=== PATIENT | female | born 1975 | race Caucasian/White ===

== ENCOUNTER → 2022-06-03 08:23 | Outpatient (CLI) | payer BC, SELFPAY ==
--- NOTE | 2022-06-03 08:44 | XR_ITS ---
FINAL REPORT CLINICAL HISTORY: foot pain FINDINGS: Left foot Three views were obtained. There is no acute fracture or dislocation. There are mild degenerative changes of the 1st metatarsophalangeal joint. Small plantar calcaneal spur is identified. No soft tissue abnormality is identified. IMPRESSION: Degenerative changes as above. Reviewed, Interpreted and Dictated by Alex Baeza III, MD Transcribed by Maryam Roach Authenticated and [facility]
--- NOTE | 2022-06-03 08:44 | XR_ITS ---
FINAL REPORT CLINICAL HISTORY: foot pain FINDINGS: Right foot Three views were obtained. There is no acute fracture or dislocation. There are mild degenerative changes of the 1st metatarsophalangeal joint. No soft tissue abnormality is identified. IMPRESSION: Mild degenerative changes as above. Reviewed, Interpreted and Dictated by Alex Baeza III, MD Transcribed by Maryam Roach Authenticated and [facility]
== END ==
PROVIDERS: PCP Emergency Medicine; Visit Provider Podiatrist
DX: M79.672 Pain in left foot (principal); M79.671 Pain in right foot
CPT/HCPCS: 73630

== ENCOUNTER 2022-06-03 10:24 | Outpatient (RCR) | payer BC, SELFPAY | END 2022-06-03 11:30 | disposition home or self-care (01) | LOC: PT 10:24 | PROVIDERS: Visit Provider Podiatrist | DX: M79.672 Pain in left foot (principal) | CPT/HCPCS: 97760 ==

== ENCOUNTER → 2022-07-02 07:44 | Outpatient (CLI) | payer BC, SELFPAY ==
--- NOTE | 2022-07-02 07:44 | MR_ITS ---
FINAL REPORT CLINICAL HISTORY: plantar foot pain, no injury COMPARISON: None FINDINGS: Multiplanar MR imaging of the left foot was performed without contrast. The bony structures are intact without evidence of fracture, bone bruise or marrow edema. The flexor and extensor tendons are intact. No ligamentous injury is identified. The musculature is intact. The plantar aponeurosis is intact. No soft tissue mass or cyst is identified. IMPRESSION: No acute bony abnormality identified. Reviewed, Interpreted and Dictated by Alex Baeza III, MD Transcribed by Raina Alba Authenticated and [facility]
== END ==
LOC: RAD 07:44
PROVIDERS: PCP Emergency Medicine; Visit Provider Podiatrist
DX: M77.52 Other enthesopathy of left foot and ankle (principal); M79.672 Pain in left foot; S99.922S Unspecified injury of left foot, sequela
CPT/HCPCS: 73718

== ENCOUNTER → 2022-07-02 08:42 | Outpatient (CLI) | payer BC, SELFPAY ==
[2022-07-02 09:19] LABS: Basophils # 0.1 K/mm3 (0-0.2); Basophils % 0.9 % (0.1-2.0); Eosinophils # 0.1 K/mm3 (0.0-0.4); Eosinophils % 1.4 % (0.1-12.0); Hematocrit 42.5 % (37.0-47.0); Lymphocytes # 3.1 K/mm3 (0.7-4.5); Lymphocytes % 46.3 % (10-50); Mean Corpuscular Hemoglobin 30.7 pg (27.0-31.2); Mean Corpuscular Volume 93.1 fl (81-99); Mean Platelet Volume 7.6 fl (7.4-10.4); Monocytes # 0.4 K/mm3 (0.1-1.0); Monocytes % 5.7 % (1.7-9.3); Neutrophils % 45.8 % (37.0-80.0); Platelet Count 390 K/mm3 (142-424); Red Blood Count 4.56 M/mm3 (4.20-5.40); Red Cell Distribution Width 12.8 % (11.5-17.5); White Blood Count 6.6 K/mm3 (4.8-10.8)
[2022-07-02 09:34] LABS: Alanine Aminotransferase 21 U/L (12-78); Albumin Level 4.4 g/dl (3.5-5.0); Albumin/Globulin Ratio 1.9 (1.1-1.8); Alkaline Phosphatase 71 U/L (38-126); Anion Gap 14.9 mEq/L (5-15); Aspartate Amino Transferase 28 U/L (14-36); Bilirubin,Total 0.4 mg/dl (0.2-1.3); Blood Urea Nitrogen 9 mg/dl (7-17); Calcium 9.3 mg/dl (8.4-10.2); Carbon Dioxide 30 mmol/L (22.0-30.0); Chloride 98 mmol/L (98-107); Estimated Glomerular Filt Rate 77 ml/min (>60); GFR (African American) 93 ML/MIN (>60); Globulin 2.3 g/dL (1.3-3.2); Glucose 87 mg/dl (74-100); Potassium 3.9 mmoL/L (3.5-5.1); Sodium 139 mmol/L (136-145); Total Protein,Serum 6.7 g/dl (6.3-8.2); Uric Acid 6.4 mg/dl (2.5-6.2)
[2022-07-02 09:39] LABS: C-Reactive Protein 0.8 mg/L (0-4)
[2022-07-02 11:14] LABS: Erythrocyte Sedimentation Rate 55 mm/hr (0-20)
[2022-07-03 12:18] LABS: RA Latex Turbid. <10.0 IU/mL (<14.0)
[2022-07-05 21:05] LABS: Antinuclear Antibodies, IFA Positive
== END ==
PROVIDERS: PCP Emergency Medicine; Visit Provider Podiatrist
DX: M19.071 Primary osteoarthritis, right ankle and foot (principal); M19.072 Primary osteoarthritis, left ankle and foot; M77.42 Metatarsalgia, left foot; M25.50 Pain in unspecified joint; L84 Corns and callosities; M77.52 Other enthesopathy of left foot and ankle; S99.922S Unspecified injury of left foot, sequela
CPT/HCPCS: 36415; 80053; 84550; 85025; 85651; 86038; 86140; 86431